=== PATIENT | male | born 1940 | race Caucasian/White ===

== ENCOUNTER → 2018-11-03 | Outpatient (CLI) | payer MEDICARE, BC ==
--- NOTE | 2018-11-03 17:12 | PCVCIMAG ---
APPROVED REPORT Study performed: 11/03/2018 14:21:49 Exam: Stress Echocardiogram Indication: Chest pain,pressure with exertion Patient Location: Echo lab Stress Nurse: Jaylene Potter RN Room #: 2 Status: routine Ht: 5 ft 8 in HR: 96 bpm BP: 158/86 mmHg Rhythm: RBBB Medical History Medical History: HTN,chest pressure w exertion Cardiac Risk Factors: HTN,JOSE Previous Cardiac Procedures: none Pretest Chest Pain Characteristics: No chest pain Exercise History: Indeterminate Procedure The patient underwent an Exercise Stress Test using the Desmond Protocol. Blood pressure, heart rate, and EKG were monitored. An Echocardiogram was performed by certified emergency vehicle technician in four stages in quad fashion. At peak stress, four selected images were obtained and placed side by side with resting images for comparison. Stress Test Details Stress Test: Exercise stress testing was performed using a Desmond protocol. HR Resting HR: 96 bpmMax Heart Rate (APMHR): 142 bpm Max HR Achieved: 151 bpmTarget HR (85% APMHR): 120 bpm % of APMHR: 106 Recovery HR: 105 bpm HR response to stress: Normal HR response to stress BP Resting BP: 158/86 mmHg Max BP: 180/82 mmHg Recovery BP: 122/78 mmHg BP response to stress: Normal blood pressure response to stress. ECG Resting ECG: Sinus Rhythm, RBBB Stress ECG: Sinus Rhythm, RBBB ST Change: Non-ischemic Arrhythmia: Occasional PVCs, couplet PVCs Recovery ECG: Sinus Rhythm, RBBB Recovery ST Change: Non-ischemic Recovery Arrhythmia: rare PVCs Clinical Reason for Termination: Maximal effort Stress Symptoms: Chest pressure Exercise duration: 9 min 31 sec Highest Stage Achieved: Stage 4: 4.2 mph at 16% grade. Exercise capacity: 11.9 METs Overall Exercise Capacity for Age: Excellent Scale: Active Angina Score: Non-Limiting No complications. Stress ECG Conclusion The patient exercised according to the DESMOND protocol for 9:31 mins; achieving a work level of 11.9 METS. The resting heart rate of 96 bpm [place] to a maximum heart rate of 151 bpm. This value represent 106% of the maximal, age-predicted heart rate. The resting blood pressure of 158/86 mmHg, [place] to a maximum blood pressure o180/82 mmHg. The exercise test was stopped due to fatigue . Pre-Stress Echo The resting Echocardiogram showed normal left ventricular contractility with an estimated Ejection Fraction of about 55-60%. Normal wall motion in all segments on baseline images. Post-Stress Echo The stress Echocardiogram showed normal left ventricular contractility with an estimated Ejection Fraction of about 65-70%. Normal augmentation of wall motion in all segments on post stress images. Septal movement consistent with a RBBB is seen. Clinical No clinical or ECG evidence for ischemia. Conclusion Clinical Response: Equivocal Exercise Capacity: Superior Stress ECG Response: Non-ischemic Stress Echo Images: Non-ischemic No clinical, EKG or echocardiographic evidence for ischemia. No echocardiographic evidence for exercise induced ischemia. Normal stress echocardiogram with maximal exercise stress. <Conclusion> No clinical, EKG or echocardiographic evidence for ischemia. No echocardiographic evidence for exercise induced ischemia. Normal stress echocardiogram with maximal exercise stress.
== END | disposition home or self-care (01) ==
LOC: PCVCIMAG 14:11
PROVIDERS: ATTEND Internal Medicine
DX: I70.0 Atherosclerosis of aorta (principal); R07.9 Chest pain, unspecified; I10 Essential (primary) hypertension; E78.00 Pure hypercholesterolemia, unspecified; K21.9 Gastro-esophageal reflux disease without esophagitis; M06.9 Rheumatoid arthritis, unspecified; M81.0 Age-related osteoporosis without current pathological fracture; R00.2 Palpitations; G47.33 Obstructive sleep apnea (adult) (pediatric); Z79.82 Long term (current) use of aspirin
CPT/HCPCS: 93005; 93325; 93351; G0463

== ENCOUNTER → 2019-06-19 | Outpatient (CLI) | payer MEDICARE, BC | END | disposition home or self-care (01) | LOC: PCVCCLINIC 13:20 | PROVIDERS: ATTEND Internal Medicine Cardiovascular Disease | DX: E78.00 Pure hypercholesterolemia, unspecified (principal); I10 Essential (primary) hypertension; R00.0 Tachycardia, unspecified; R93.1 Abnormal findings on diagnostic imaging of heart and coronary circulation; Z79.82 Long term (current) use of aspirin | CPT/HCPCS: 36415; 80061; 93005; G0463 ==